=== PATIENT | female | born 1950 ===

== ENCOUNTER 2017-12-11 02:04 | Inpatient (IN) | payer MEDICARE, MEDICAID ==
[2017-12-11 02:20] VITALS: BMI 24.6
[2017-12-11 02:48] LABS: BASO # 0.1 K/uL (0.0-0.2); BASO % 0.5 % (0.0-2.0); EOS # 0.2 K/uL (0.0-0.7); EOS % 1.6 % (0.0-4.0); HEMOGLOBIN 10.8 g/dL (12.0-16.0); LYMPH # 2.8 K/uL (1.0-4.3); LYMPH % 21.6 % (20.0-40.0); MEAN CORPUSCULAR HEMOGLOBIN 25.3 pg (27.0-31.0); MEAN CORPUSCULAR HGB CONC 33.8 g/dL (33.0-37.0); MEAN PLATELET VOLUME 6.5 fl (7.2-11.7); MONO % 7.9 % (0.0-10.0); NEUT # 8.9 K/uL (1.8-7.0); NEUT % 68.4 % (50.0-75.0); RBC 4.28 Mil/uL (3.80-5.20); RED CELL DISTRIBUTION WIDTH 15.4 % (11.5-14.5); WHITE BLOOD COUNT 12.9 K/uL (4.8-10.8)
[2017-12-11 03:00] LABS: ALB/GLOB RATIO 1.4 (1.0-2.1); ALBUMIN 3.9 g/dL (3.5-5.0); ALT/SGPT 28 U/L (9-52); AST/SGOT 23 U/L (14-36); BLOOD UREA NITROGEN 14 mg/dl (7-17); CALCIUM 9.2 mg/dL (8.4-10.2); GFR AFRICAN-AMERICAN > 60; GFR NON-AFRICAN AMERICAN 55
[2017-12-11 03:00] LABS: SQUAMOUS EPITHIAL 1 /hpf (0-5); URINE BACTERIA RARE (<OCC); URINE BILIRUBIN NEGATIVE (NEGATIVE); URINE BLOOD SMALL (NEGATIVE); URINE CLARITY CLEAR (Clear); URINE COLOR STRAW (YELLOW); URINE GLUCOSE (UA) NEG (Normal); URINE LEUKOCYTE ESTERASE TRACE Leu/uL (Negative); URINE NITRATE NEGATIVE (NEGATIVE); URINE PROTEIN NEGATIVE (NEGATIVE); URINE UROBILINOGEN 0.2-1.0 mg/dL (0.2-1.0)
[2017-12-11] MEDS ORDERED: Sodium Chloride 0.9% 1,000 ML IV STA ×2 (03:02→06:04)
--- NOTE | 2017-12-11 03:15 | ED PDOC ---
HPI: Headache Time Seen by Provider: 12/11/17 02:21 Chief Complaint (Nursing): Headache Chief Complaint (Provider): Headache History Per: Patient History/Exam Limitations: no limitations Onset/Duration Of Symptoms: Days (x2) Current Symptoms Are (Timing): Still Present Additional Complaint(s): 67 year old female presents to ED with complaints of headache x2 days and has a past medical history of HTN, DM (type II), and depression. Notes that she started taking Lopressor x4 days ago, which is when the onset of generalized weakness and malaise. (-) vomiting, diarrhea, SOB, cough, or chest pain. PCP: Presley Koch Past Medical History Reviewed: Historical Data, Nursing Documentation, Vital Signs Vital Signs: Last Vital Signs Temp 97.2 F L 12/11/17 02:20 Pulse 85 12/11/17 02:20 Resp 16 12/11/17 02:20 BP 125/67 12/11/17 02:20 Pulse Ox 100 12/11/17 02:20 - Medical History PMH: Arthritis, Depression, Diabetes, Hypercholesterolemia - Surgical History Surgical History: No Surg Hx - Family History Family History: States: No Known Family Hx - Social History Current smoker - smoking cessation education provided: Yes Alcohol: None Drugs: Denies - Allergies Allergies/Adverse Reactions: Allergies Allergy/AdvReac Type Severity Reaction Status Date / Time acetaminophen [From Percocet] Allergy RASH Verified 12/11/17 02:19 oxycodone HCl [From Percocet] Allergy RASH Verified 12/11/17 02:19 Penicillins Allergy SWELLING Verified 12/11/17 02:19 Review of Systems ROS Statement: Except As Marked, All Systems Reviewed And Found Negative Constitutional: Positive for: Weakness (generalized), Malaise Cardiovascular: Negative for: Chest Pain Respiratory: Negative for: Shortness of Breath, Other ((-) cough) Gastrointestinal: Negative for: Vomiting, Diarrhea Neurological: Positive for: Headache Physical Exam - Reviewed Nursing Documentation Reviewed: Yes Vital Signs Reviewed: Yes - Physical Exam Appears: Positive for: Non-toxic, No Acute Distress Head Exam: Positive for: ATRAUMATIC Skin: Positive for: Normal Color, Warm, Dry Eye Exam: Positive for: Normal appearance ENT: Positive for: Normal ENT Inspection Neck: Positive for: Normal Cardiovascular/Chest: Positive for: Regular Rate, Rhythm Respiratory: Positive for: Normal Breath Sounds. Negative for: Respiratory Distress Gastrointestinal/Abdominal: Positive for: Soft. Negative for: Tenderness Back: Positive for: Normal Inspection Extremity: Positive for: Normal ROM. Negative for: Deformity Neurologic/Psych: Positive for: Alert, Oriented. Negative for: Motor/Sensory Deficits - Laboratory Results Result Diagrams: 12/11/17 02:45 12/11/17 02:45 - ECG O2 Sat by Pulse Oximetry: 100 (RA) Pulse Ox Interpretation: Normal Medical Decision Making Medical Decision Makin Initial impression: nonspecific headache in setting of medication change Initial plan: * Labs * UDip * Accucheck * UA 0303 * EKG * Osmolarity, serum * Osmolarity, urine * NS IV 0400 Patient will be admitted under INPATIENT TELE in Dr. Nolan's care for hyponatremia. Scribe Attestation: Documented by Tiffanie Diaz acting as a scribe for Romie Thompson MD. Scribe Attestation: All medical record entries made by the Scribe were at my direction and personally dictated by me. I have reviewed the chart and agree that the record accurately reflects my personal performance of the history, physical exam, medical decision making, and the department course for this patient. I have also personally directed, reviewed, and agree with the discharge instructions and disposition. Disposition - Clinical Impression Clinical Impression: Adverse reaction to antihypertensives - Disposition Disposition Time: 04:00 Condition: FAIR - Pt Status Changed To: Hospital Disposition Of: Inpatient (TELE) - Admit Certification Admit to Inpatient:: After my assessment, the patient will require hospitalization for at least two midnights. This is because of the severity of symptoms shown, intensity of services needed, and/or the medical risk in this patient being treated as an outpatient. - POA Present On Arrival: None
--- NOTE | 2017-12-11 09:44 | RAD ---
HISTORY: admit COMPARISON: CT chest dated 04/05/2017 and chest radiograph dated 06/04/2016. FINDINGS: LUNGS: Stable chronic prominence of the bilateral interstitial markings. Right apical and basilar subpleural honeycombing redemonstrated PLEURA: No significant pleural effusion identified, no pneumothorax apparent. CARDIOVASCULAR: Atherosclerotic aortic calcifications. Cardiomediastinal silhouette within normal limits. OSSEOUS STRUCTURES: Unchanged. VISUALIZED UPPER ABDOMEN: Normal. OTHER FINDINGS: None. IMPRESSION: Stable chronic prominence of the bilateral interstitial markings. No focal consolidation or pleural effusion.
[2017-12-11] MEDS ORDERED: SIMETHICONE 125 MG PO PRN (10:40)
[2017-12-11] MEDS ORDERED: Albuterol HFA 90 mcg/actuation (8 g) INH PRN (10:40)
[2017-12-11] MEDS ORDERED: Patient's Own Med (Azilsartan Medoxomil [Edarbi] 40 mg) PO SCH (10:45)
[2017-12-11] MEDS: Tmp-Smz 400 mg-80 mg SS Tab PO SCH ×2 (12:41→17:57)
[2017-12-11] MEDS: Metoprolol Succinate 25 mg XL Tab PO SCH (12:42)
--- NOTE | 2017-12-11 13:01 | CARD ---
APPROVED REPORT EKG Measurement Heart [id number] <Conclusion> Normal sinus rhythm Normal ECG
[2017-12-11 15:02] LABS: BLOOD UREA NITROGEN 13 mg/dl (7-17); CALCIUM 9.4 mg/dL (8.4-10.2); GFR AFRICAN-AMERICAN > 60; GFR NON-AFRICAN AMERICAN 55
[2017-12-11] MEDS ORDERED: Patient's Own Med (Linagliptin/Metformin Hcl [Jentadueto 2.5 Mg-1000 Mg Tab] 1 TAB) PO SCH (17:00)
[2017-12-11] MEDS: Calcium-Vit D 500 mg-200 Units Tab UD PO SCH (17:55)
[2017-12-12 06:43] LABS: BLOOD UREA NITROGEN 15 mg/dl (7-17); CALCIUM 9.8 mg/dL (8.4-10.2); GFR AFRICAN-AMERICAN > 60; GFR NON-AFRICAN AMERICAN 55
[2017-12-12] MEDS: Tmp-Smz 400 mg-80 mg SS Tab PO SCH ×2 (08:56→16:51)
[2017-12-12] MEDS: Calcium-Vit D 500 mg-200 Units Tab UD PO SCH ×2 (08:58→16:54)
[2017-12-12] MEDS: Pantoprazole 20 mg EC Tab PO SCH (08:59)
[2017-12-12] MEDS: Multivitamin With Minerals Tab PO SCH (08:59)
[2017-12-12] MEDS ORDERED: OLODATEROL HCL PO SCH (09:00)
[2017-12-12] MEDS: Metoprolol Succinate 25 mg XL Tab PO SCH (09:00)
[2017-12-12] MEDS ORDERED: TIOTROPIUM BR PO SCH (09:00)
[2017-12-12] MEDS ORDERED: ALENDRONATE 70 MG TAB PO SCH (10:45)
--- NOTE | 2017-12-12 22:23 | CP.PCM.HP ---
History of Present Illness - History of Present Illness History of Present Illness: This is a 67 y/o female admited for generalized fatigue and weakness and noted to have moderately low sodium of 124. She claims that sx started few days ago when she was started on Metoprolol. Past Patient History - Past Social History Smoking Status: Light Smoker < 10 Cigarettes Daily - CARDIAC Hx Cardiac Disorders: Yes (not known) - ENDOCRINE/METABOLIC Hx Diabetes Mellitus Type 2: Yes - MUSCULOSKELETAL/RHEUMATOLOGICAL Hx Falls: No - PSYCHIATRIC Hx Substance Use: No - SURGICAL HISTORY Hx Surgeries: Yes Hx Hysterectomy: Yes - ANESTHESIA Hx Anesthesia: Yes Meds Allergies/Adverse Reactions: Allergies Allergy/AdvReac Type Severity Reaction Status Date / Time acetaminophen [From Percocet] Allergy RASH Verified 12/11/17 02:19 oxycodone HCl [From Percocet] Allergy RASH Verified 12/11/17 02:19 Penicillins Allergy SWELLING Verified 12/11/17 02:19 Results - Vital Signs Recent Vital Signs: Last Vital Signs Temp 97.5 F L 12/12/17 20:04 Pulse 85 12/12/17 20:04 Resp 16 12/12/17 20:04 BP 99/63 L 12/12/17 20:04 Pulse Ox 96 12/12/17 20:04 - Labs Result Diagrams: 12/11/17 02:45 12/12/17 05:25 Labs: Laboratory Results - last 24 hr 12/11/17 12/12/17 12/12/17 21:00 05:25 05:32 Sodium 139 Potassium 4.3 Chloride 106 Carbon Dioxide 23 Anion Gap 14 BUN 15 Creatinine 1.0 Est GFR ( Amer) > 60 Est GFR (Non-Af Amer) 55 POC Glucose (mg/dL) 141 H 93 Random Glucose 85 Calcium 9.8 12/12/17 12/12/17 12/12/17 11:05 15:54 16:46 Sodium Potassium Chloride Carbon Dioxide Anion Gap BUN Creatinine Est GFR ( Amer) Est GFR (Non-Af Amer) POC Glucose (mg/dL) 136 H 67 103 Random Glucose Calcium
--- NOTE | 2017-12-12 22:25 | CP.PCM.PN ---
Subjective - Date & Time of Evaluation Date of Evaluation: 12/12/17 Time of Evaluation: 17:24 - Subjective Subjective: Patient continues to do well. Noted improvement of sx. Sodium is now 139 Has good sleep and appetite. Objective - Vital Signs/Intake and Output Vital Signs (last 24 hours): Temp Pulse Resp BP Pulse Ox 97.5 F L 85 16 99/63 L 96 12/12/17 20:04 12/12/17 20:04 12/12/17 20:04 12/12/17 20:04 12/12/17 20:04 - Medications Medications: Current Medications Alendronate Sodium (Fosamax) 70 mg PO QWK [facility] Aspirin (Ecotrin) 81 mg PO DAILY [facility] Last Admin: 12/12/17 08:57 Dose: 81 mg Atorvastatin Calcium (Lipitor) 20 mg PO DAILY [facility] Last Admin: 12/12/17 08:58 Dose: 20 mg Benzonatate (Tessalon Perles) 100 mg PO DAILY [facility] Last Admin: 12/12/17 08:59 Dose: 100 mg Calcium/Vitamin D (Oyster Shell Calcium/Vitamin D 500 Mg-200 Iu) 1 tab PO BID [facility] Last Admin: 12/12/17 16:54 Dose: 1 tab Cyproheptadine HCl (Periactin) 4 mg PO TID [facility] Last Admin: 12/12/17 13:55 Dose: 4 mg Ferrous Sulfate (Feosol) 325 mg PO BID [facility] Last Admin: 12/12/17 16:52 Dose: 325 mg Gabapentin (Neurontin) 100 mg PO TID [facility] Last Admin: 12/12/17 16:53 Dose: 100 mg Haloperidol (Haldol) 0.5 mg PO BID [facility] Last Admin: 12/12/17 16:52 Dose: 0.5 mg Ibuprofen (Motrin Tab) 600 mg PO Q8 PRN PRN Reason: Pain, moderate (4-7) Last Admin: 12/11/17 12:41 Dose: 600 mg Lorazepam (Ativan) 2 mg PO BID [facility] Last Admin: 12/12/17 16:51 Dose: 2 mg Meclizine HCl (Antivert) 25 mg PO BID [facility] Last Admin: 12/12/17 16:48 Dose: 25 mg Metoprolol Succinate (Toprol Xl) 25 mg PO DAILY [facility] Last Admin: 12/12/17 09:00 Dose: 25 mg Multivitamins/Minerals (Therapeutic-M Tab) 1 tab PO DAILY [facility] Last Admin: 12/12/17 08:59 Dose: 1 tab Olanzapine (Zyprexa) 20 mg PO DAILY [facility] Last Admin: 12/12/17 09:00 Dose: 20 mg Pantoprazole Sodium (Protonix Ec Tab) 20 mg PO DAILY [facility] Last Admin: 12/12/17 08:59 Dose: 20 mg Trimethoprim/Sulfamethoxazole (Bactrim Ss Tab) 1 tab PO BID [facility] Last Admin: 12/12/17 16:51 Dose: 1 tab Zolpidem Tartrate (Ambien) 5 mg PO HS PRN PRN Reason: Sleep Last Admin: 12/12/17 21:31 Dose: 5 mg - Labs Labs: 12/11/17 02:45 12/12/17 05:25
[2017-12-13 08:10] VITALS: BP 108/71; RESP 20; TEMP 97.4; O2SAT 98
[2017-12-13] MEDS: Tmp-Smz 400 mg-80 mg SS Tab PO SCH (09:04)
[2017-12-13] MEDS: Multivitamin With Minerals Tab PO SCH (09:05)
[2017-12-13] MEDS: Calcium-Vit D 500 mg-200 Units Tab UD PO SCH (09:05)
[2017-12-13] MEDS: Metoprolol Succinate 25 mg XL Tab PO SCH (09:07)
[2017-12-13 09:10] VITALS: PULSE 85
[2017-12-13] MEDS: Pantoprazole 20 mg EC Tab PO SCH (11:19)
== END 2017-12-13 12:28 | disposition home or self-care (01) | DRG 641 ==
LOC: H.ER 02:04 → H.ERHOLD 03:43 → H.TEL 06:29
PROVIDERS: ADMIT Family Medicine; ATTEND Family Medicine
DX: E87.1 Hypo-osmolality and hyponatremia (principal); E11.9 Type 2 diabetes mellitus without complications; E78.00 Pure hypercholesterolemia, unspecified; F17.200 Nicotine dependence, unspecified, uncomplicated; I10 Essential (primary) hypertension; Z90.710 Acquired absence of both cervix and uterus; F32.9 Major depressive disorder, single episode, unspecified; M19.90 Unspecified osteoarthritis, unspecified site

== ENCOUNTER 2017-12-22 07:46 | Emergency (ER) | payer MEDICARE, MEDICAID ==
[2017-12-22 07:47] VITALS: BMI 24.6
[2017-12-22 08:01] VITALS: BP 159/81; PULSE 113; RESP 20; TEMP 98.9; O2SAT 99
[2017-12-22 09:18] LABS: BASO % 0.2 % (0.0-2.0); EOS # 0.1 K/uL (0.0-0.7); EOS % 1.1 % (0.0-4.0); HEMOGLOBIN 11.3 g/dL (12.0-16.0); LYMPH # 2.2 K/uL (1.0-4.3); MEAN CELL VOLUME 76.2 fl (81.0-99.0); MEAN CORPUSCULAR HEMOGLOBIN 25.2 pg (27.0-31.0); MONO # 0.7 K/uL (0.0-0.8); MONO % 6.4 % (0.0-10.0); NEUT # 8.1 K/uL (1.8-7.0); NEUT % 72.3 % (50.0-75.0); NRBC % 0.1 % (0.0-0.0); RBC 4.49 Mil/uL (3.80-5.20); RED CELL DISTRIBUTION WIDTH 15.9 % (11.5-14.5); WHITE BLOOD COUNT 11.1 K/uL (4.8-10.8)
[2017-12-22 09:26] LABS: BLOOD UREA NITROGEN 18 mg/dl (7-17); CALCIUM 10.2 mg/dL (8.4-10.2); GFR AFRICAN-AMERICAN > 60; GFR NON-AFRICAN AMERICAN 50
--- NOTE | 2017-12-22 09:43 | ED PDOC ---
HPI: General Adult Time Seen by Provider: 12/22/17 08:15 Chief Complaint (Nursing): Dizziness/Lightheaded Chief Complaint (Provider): Dizziness History Per: Patient History/Exam Limitations: no limitations Current Symptoms Are (Timing): Still Present Additional Complaint(s): Grazyna is a 67 y/o female who presents to the ED complaining of ongoing dizziness and lightheadedness. Patient states that she couldn't see Dr. Quinteros when she went to his office yesterday and says that despite him removing some diuretics she continues to be dizzy. She has no other complaints. PMD: Dr. Quinteros Past Medical History Reviewed: Historical Data, Nursing Documentation, Vital Signs Vital Signs: Last Vital Signs Temp 98.9 F 12/22/17 08:01 Pulse 113 H 12/22/17 08:01 Resp 20 12/22/17 08:01 BP 159/81 H 12/22/17 08:01 Pulse Ox 99 12/22/17 09:48 - Medical History PMH: Arthritis, Depression, Diabetes, Hypercholesterolemia - Family History Family History: States: Unknown Family Hx - Home Medications Home Medications: Ambulatory Orders Medication Instructions Recorded Albuterol HFA [Ventolin HFA 90 2 puff INH PRN PRN 12/11/17 mcg/actuation (8 g)] Alendronate [Fosamax] 70 mg PO QWK 12/11/17 Amitriptyline HCl 50 mg PO HS 12/11/17 Aspirin [Adult Low Dose Aspirin EC] 1 tab PO DAILY 12/11/17 Azilsartan Medoxomil [Edarbi] 40 mg PO DAILY 12/11/17 Benzonatate [Tessalon Perles] 100 mg PO DAILY 12/11/17 Calcium Carbonate/Vitamin D3 1 tab PO BID 12/11/17 [Oyster Shell Calcium-Vit D Tab] Cyproheptadine [Periactin] 4 mg PO TID 12/11/17 Ferrous Sulfate [Feosol] 325 mg PO BID 12/11/17 Gabapentin [Neurontin] 100 mg PO TID 12/11/17 Haloperidol [Haldol] 0.5 mg PO BID 12/11/17 Linagliptin/Metformin HCl 1 tab PO BID 12/11/17 [Jentadueto 2.5 mg-1000 mg Tab] Lorazepam [Ativan] 2 mg PO BID 12/11/17 Meclizine [Meclizine*] 25 mg PO BID 12/11/17 Mv,Min10/Folic Acid/D3/Ala/Lut 1 tab PO DAILY 12/11/17 [Strovite One Caplet] Olanzapine [Zyprexa] 20 mg PO DAILY 12/11/17 Omeprazole 20 mg PO DAILY 12/11/17 Rosuvastatin Calcium [Crestor] 10 mg PO DAILY 12/11/17 Simethicone [Gas-X] 125 mg PO PRN PRN 12/11/17 Sulfamethoxazole/Trimethoprim 1 tab PO BID 12/11/17 [Bactrim 400-80 mg Tablet] Tiotropium Br/Olodaterol HCl 1 inh PO DAILY 12/11/17 [Stiolto Respimat Inhal Rudolph] Zolpidem [Ambien] 10 mg PO HS PRN 12/11/17 - Allergies Allergies/Adverse Reactions: Allergies Allergy/AdvReac Type Severity Reaction Status Date / Time acetaminophen [From Percocet] Allergy RASH Verified 12/11/17 02:19 oxycodone HCl [From Percocet] Allergy RASH Verified 12/11/17 02:19 Penicillins Allergy SWELLING Verified 12/11/17 02:19 Review of Systems ROS Statement: Except As Marked, All Systems Reviewed And Found Negative Cardiovascular: Negative for: Chest Pain Respiratory: Negative for: Shortness of Breath Neurological: Positive for: Dizziness, Other (lightheadedness) Physical Exam - Reviewed Nursing Documentation Reviewed: Yes Vital Signs Reviewed: Yes - Physical Exam Appears: Positive for: Well, Non-toxic, No Acute Distress Skin: Positive for: Normal Color, Warm, DRY Cardiovascular/Chest: Positive for: Regular Rate, Rhythm. Negative for: Murmur Respiratory: Positive for: Normal Breath Sounds. Negative for: Wheezing, Respiratory Distress Neurologic/Psych: Positive for: Alert, Oriented - Laboratory Results Result Diagrams: 12/22/17 08:48 12/22/17 08:48 - ECG O2 Sat by Pulse Oximetry: 99 (RA) Pulse Ox Interpretation: Normal Medical Decision Making Medical Decision Making: Time: 8:22 Initial Impression: Dizziness Initial Plan: --BMP --Urine Dip --CBC --Urine Culture --Urinalysis --Dr. Quinteros was consulted. He states that patient denied seeing one of his assistants yesterday. Ovidio will see patient today. Scribe Attestation: Documented by Antonino Carrasco, acting as a scribe for Janny Steen MD Provider Scribe Attestation: All medical record entries made by the Scribe were at my direction and personally dictated by me. I have reviewed the chart and agree that the record accurately reflects my personal performance of the history, physical exam, medical decision making, and the department course for this patient. I have also personally directed, reviewed, and agree with the discharge instructions and disposition. case d.w Dr. quinteros. labs reviewed. values are chronic and improved compared to previous. He will see her today in his office. Patient made aware and discharged. Disposition - Clinical Impression Clinical Impression: Dizziness - Patient ED Disposition Is Patient to be Admitted: No Discussed With : Presley Quinteros Doctor Will See Patient In The: Office Counseled Patient/Family Regarding: Studies Performed, Diagnosis, Need For Followup - Disposition Referrals: Presley Quinteros MD [Family Provider] - 12/22/17 1:00 pm Disposition: Routine/Home Disposition Time: 10:07 Condition: STABLE Instructions: Dizziness (ED) Forms: [employer] (Comoran) Print Language: ICELANDIC
[2017-12-22 10:09] LABS: SQUAMOUS EPITHIAL 4 /hpf (0-5); URINE BACTERIA RARE (<OCC); URINE BILIRUBIN NEGATIVE (NEGATIVE); URINE BLOOD SMALL (NEGATIVE); URINE CLARITY CLOUDY (Clear); URINE COLOR STRAW (YELLOW); URINE GLUCOSE (UA) NEG (Normal); URINE LEUKOCYTE ESTERASE NEG Leu/uL (Negative); URINE NITRATE NEGATIVE (NEGATIVE); URINE PROTEIN NEGATIVE (NEGATIVE); URINE UROBILINOGEN 0.2-1.0 mg/dL (0.2-1.0)
== END 2017-12-22 10:59 | disposition home or self-care (01) ==
LOC: H.ER 07:46
DX: R42 Dizziness and giddiness (principal); E11.9 Type 2 diabetes mellitus without complications; E78.00 Pure hypercholesterolemia, unspecified; F32.9 Major depressive disorder, single episode, unspecified; Z79.82 Long term (current) use of aspirin; Z88.0 Allergy status to penicillin; Z88.5 Allergy status to narcotic agent

== ENCOUNTER 2018-12-22 08:55 | Inpatient (IN) | payer MEDICARE, MEDICAID ==
[2018-12-22 08:57] VITALS: BMI 29.2
[2018-12-22] MEDS ORDERED: Sodium Chloride 0.9% 1,000 ML IV STA (09:18)
--- NOTE | 2018-12-22 09:33 | ED PDOC ---
HPI: General Adult Chief Complaint (Nursing): Dizziness/Lightheaded Chief Complaint (Provider): dizziness and nausea History Per: Patient History/Exam Limitations: no limitations Onset/Duration Of Symptoms: Hrs (this morning) Current Symptoms Are (Timing): Still Present Additional Complaint(s): Grazyna Carmona is a 68 year old female, with a past medical history of hypercholesterolemia and diabetes, who presents to the emergency department complaining of dizziness and nausea since this morning. Patient states last night when she went to bed, she felt unwell but cannot state how. Patient re ports her PMD changed her medication doses yesterday but not sure which ones were changed, otherwise she has been compliant with her medications. She woke up this morning feeling dizzy and nauseous but has not vomited. She denies any fever, chills, chest pain, shortness of breath, headache, weakness, numbness or tingling. No further medical complaints. PMD: Presley Nolan Past Medical History Reviewed: Historical Data, Nursing Documentation, Vital Signs Vital Signs: Last Vital Signs Temp 98.2 F 12/22/18 08:58 Pulse 108 H 12/22/18 08:58 Resp 18 12/22/18 08:58 BP 186/91 H 12/22/18 08:58 Pulse Ox 98 12/22/18 09:02 - Medical History PMH: Arthritis, Depression, Diabetes, Hypercholesterolemia - Surgical History Surgical History: No Surg Hx - Family History Family History: States: Unknown Family Hx - Home Medications Home Medications: Ambulatory Orders Medication Instructions Recorded RX: Amitriptyline HCl 50 mg PO HS 12/11/17 RX: Aspirin [Adult Low Dose 1 tab PO DAILY 12/11/17 Aspirin EC] RX: Azilsartan Medoxomil [Edarbi] 40 mg PO DAILY 12/11/17 RX: Benzonatate [Tessalon Perles] 100 mg PO Q12 PRN 12/11/17 RX: Calcium Carbonate/Vitamin D3 1 tab PO BID 12/11/17 [Oyster Shell Calcium-Vit D Tab] RX: Ferrous Sulfate [Feosol] 325 mg PO BID 12/11/17 RX: Lorazepam [Ativan] 2 mg PO Q12 12/11/17 RX: Meclizine [Meclizine*] 25 mg PO Q12 PRN 12/11/17 RX: Mv,Min10/Folic Acid/D3/Ala/Lut 1 tab PO DAILY 12/11/17 [Strovite One Caplet] RX: Olanzapine [Zyprexa] 20 mg PO HS 12/11/17 RX: Rosuvastatin Calcium [Crestor] 10 mg PO DAILY 12/11/17 RX: Simethicone [Gas-X] 125 mg PO DAILY PRN 12/11/17 RX: Tiotropium Br/Olodaterol HCl 1 inh PO DAILY 12/11/17 [Stiolto Respimat Inhal Dorena] RX: Zolpidem [Ambien] 10 mg PO HS 12/11/17 Albuterol/Ipratropium [Duoneb 3 3 ml IH Q8 12/22/18 mg/0.5 mg (3 ml) UD] Azithromycin [Zithromax Tri-Cliff] 500 mg PO DAILY 12/22/18 Brompheniramine/Pseudoephed/Dm 10 ml PO Q8 PRN 12/22/18 [Msiavbpthc-Xxjhlugnzhe-Am Syr] Budesonide/Formoterol Fumarate 1 puff IH Q12 12/22/18 [Symbicort 160-4.5 Mcg Inhaler] Ergocalciferol (Vitamin D2) 50,000 unit PO QWK 12/22/18 [Vitamin D2] Metoprolol Succinate XL [Toprol XL] 25 mg PO DAILY 12/22/18 Pantoprazole Sodium [Protonix] 20 mg PO DAILY 12/22/18 RX: Gabapentin [Neurontin] 300 mg PO QAM 12/22/18 RX: Gabapentin [Neurontin] 600 mg PO HS 12/22/18 RX: Sodium Chloride [Sodium 1 gm PO Q12 12/22/18 Chloride Tab] SITagliptin [Januvia] 100 mg PO DAILY 12/22/18 Vortioxetine Hydrobromide 10 mg PO DAILY 12/22/18 [Trintellix] - Allergies Allergies/Adverse Reactions: Allergies Allergy/AdvReac Type Severity Reaction Status Date / Time acetaminophen [From Percocet] Allergy RASH Verified 12/22/18 09:02 oxycodone HCl [From Percocet] Allergy RASH Verified 12/22/18 09:02 Penicillins Allergy SWELLING Verified 12/22/18 09:02 Review of Systems ROS Statement: Except As Marked, All Systems Reviewed And Found Negative Constitutional: Negative for: Fever, Chills Cardiovascular: Negative for: Chest Pain Respiratory: Negative for: Shortness of Breath Gastrointestinal: Positive for: Nausea. Negative for: Vomiting Neurological: Positive for: Dizziness. Negative for: Weakness, Numbness (tingling), Headache Physical Exam - Reviewed Nursing Documentation Reviewed: Yes Vital Signs Reviewed: Yes - Physical Exam Appears: Positive for: Well, No Acute Distress Head Exam: Positive for: ATRAUMATIC, NORMAL INSPECTION, NORMOCEPHALIC Skin: Positive for: Normal Color, Warm, Dry Eye Exam: Positive for: Normal appearance, EOMI, PERRL Neck: Positive for: Normal, Painless ROM Cardiovascular/Chest: Positive for: Tachycardia (regular rhythm). Negative for: Murmur Respiratory: Positive for: Normal Breath Sounds. Negative for: Respiratory Distress Gastrointestinal/Abdominal: Positive for: Normal Exam, Soft. Negative for: Tenderness, Guarding, Rebound Back: Positive for: Normal Inspection. Negative for: L CVA Tenderness, R CVA Tenderness, Vertebral Tenderness Extremity: Positive for: Normal ROM (upper and lower extremities). Negative for: Deformity, Swelling Neurologic/Psych: Positive for: Alert, Oriented. Negative for: Motor/Sensory Deficits, Aphasia, Facial Droop - Laboratory Results Result Diagrams: 12/22/18 09:23 12/22/18 12:15 - ECG O2 Sat by Pulse Oximetry: 98 (RA) Pulse Ox Interpretation: Normal Medical Decision Making Medical Decision Making: Initial Impression: work up for dizziness and nausea. R/o cardiac etiology vs infectious process. Flu swab, labs, IV fluids and reassess patient. Initial Plan: --EKG --CMP --CBC w/ differential --Chest two views (PA.LAT) [RAD] --NaCl 1,000 ml IV 1,000 mls/hr --Zofran Inj 4 mg IVP --Influenza A B --Urinalysis --Reevaluation 10:12 Patient with hyponatremia of 114, not due to hyperglycemia. Will start hypertonic saline for slow administration. No neurovascular deficits at this point besides subjective dizziness. Spoke with Dr. Hussein who agrees with admission. Repeat labs in x2 hrs, patient on monitor. 11:09 CXR FINDINGS: LUNGS: Stable chronic prominence of the bilateral interstitial markings. Right apical and basilar subpleural honeycombing redemonstrated. Tiny peripheral left midlung calcified granuloma unchanged. PLEURA: No significant pleural effusion identified. No pneumothorax apparent. CARDIOVASCULAR: Aortic atherosclerotic calcifications. Cardiomediastinal silhouette within normal limits. OSSEOUS STRUCTURES: Unchanged. VISUALIZED UPPER ABDOMEN: Normal. OTHER FINDINGS: None. IMPRESSION: Stable chronic prominence of the bilateral interstitial markings. No focal consolidation or pleural effusion. 1:10 Sodium improved to 120 following one bolus. Pt stable and to be taken to the floor now. -- Scribe Attestation: Documented by Seamus Arteaga, acting as a scribe for Olivia Zaldivar MD Provider Scribe Attestation: All medical record entries made by the Scribe were at my direction and personally dictated by me. I have reviewed the chart and agree that the record accurately reflects my personal performance of the history, physical exam, medical decision making, and the department course for this patient. I have also personally directed, reviewed, and agree with the discharge instructions and disposition. Disposition - Clinical Impression Clinical Impression: Hyponatremia - Disposition Disposition Time: 13:10 Condition: FAIR
[2018-12-22 09:45] LABS: BASO # 0.1 K/uL (0.0-0.2); BASO % 0.5 % (0.0-2.0); EOS # 0.1 K/uL (0.0-0.7); EOS % 1.2 % (0.0-4.0); HEMOGLOBIN 10.9 g/dL (12.0-16.0); LYMPH # 1.5 K/uL (1.0-4.3); LYMPH % 15.8 % (20.0-40.0); MEAN CORPUSCULAR HEMOGLOBIN 26.3 pg (27.0-31.0); MEAN CORPUSCULAR HGB CONC 34.1 g/dL (33.0-37.0); MEAN PLATELET VOLUME 6.4 fl (7.2-11.7); MONO # 0.7 K/uL (0.0-0.8); MONO % 7.5 % (0.0-10.0); NEUT # 7.4 K/uL (1.8-7.0); NRBC % 0.1 % (0.0-0.0); RBC 4.14 Mil/uL (3.80-5.20); RED CELL DISTRIBUTION WIDTH 15.5 % (11.5-14.5); WHITE BLOOD COUNT 9.8 K/uL (4.8-10.8)
[2018-12-22 10:06] LABS: ALBUMIN 4.3 g/dL (3.5-5.0); CALCIUM 9.2 mg/dL (8.4-10.2)
[2018-12-22 10:07] LABS: ALB/GLOB RATIO 1.5 (1.0-2.1)
[2018-12-22] MEDS ORDERED: Sodium Chloride 3% 100 ML IV STA (10:16)
[2018-12-22 10:20] LABS: SQUAMOUS EPITHIAL < 1 /hpf (0-5); URINE BACTERIA RARE (<OCC); URINE BILIRUBIN NEGATIVE (NEGATIVE); URINE BLOOD SMALL (NEGATIVE); URINE CLARITY CLEAR (Clear); URINE COLOR COLORLESS (YELLOW); URINE GLUCOSE (UA) NEG (NEGATIVE); URINE LEUKOCYTE ESTERASE NEG Leu/uL (Negative); URINE PROTEIN NEGATIVE (NEGATIVE); URINE UROBILINOGEN 0.2-1.0 mg/dL (0.2-1.0)
[2018-12-22] MEDS ORDERED: Sodium Chloride 3% 100 ML IV ONE (10:45)
--- NOTE | 2018-12-22 11:13 | RAD ---
Date of service: 12/22/2018 HISTORY: cough COMPARISON: Chest radiograph dated 12/11/2017. TECHNIQUE: Chest PA and lateral FINDINGS: LUNGS: Stable chronic prominence of the bilateral interstitial markings. Right apical and basilar subpleural honeycombing redemonstrated. Tiny peripheral left midlung calcified granuloma unchanged. PLEURA: No significant pleural effusion identified. No pneumothorax apparent. CARDIOVASCULAR: Aortic atherosclerotic calcifications. Cardiomediastinal silhouette within normal limits. OSSEOUS STRUCTURES: Unchanged. VISUALIZED UPPER ABDOMEN: Normal. OTHER FINDINGS: None. IMPRESSION: Stable chronic prominence of the bilateral interstitial markings. No focal consolidation or pleural effusion.
[2018-12-22 12:39] LABS: CALCIUM 8.9 mg/dL (8.4-10.2)
--- NOTE | 2018-12-22 13:45 | CARD ---
APPROVED REPORT Date of service: 12/22/2018 EKG Measurement Heart [id number] <Conclusion> Sinus tachycardia Possible Left atrial enlargement Borderline ECG
[2018-12-22] MEDS ORDERED: Simethicone 80 mg Chewtab PO PRN (16:22)
[2018-12-22] MEDS ORDERED: Ergocalciferol 50,000 Intl Units Cap PO SCH (16:30)
[2018-12-22] MEDS: Calcium-Vit D 500 mg-200 Units Tab UD PO SCH (17:58)
[2018-12-22 19:19] LABS: URIC ACID 3.6 mg/Dl (2.2-7.5)
--- NOTE | 2018-12-22 19:26 | CP.PCM.CON ---
History of Present Illness - History of Present Illness History of Present Illness: pt is seen and examined, full consult is dictated #[id number] Past Patient History - Past Medical History & Family History Past Medical History?: Yes - Past Social History Smoking Status: Light Smoker < 10 Cigarettes Daily - CARDIAC Hx Cardiac Disorders: Yes Hx Hypercholesterolemia: Yes Hx Hypertension: Yes - PULMONARY Hx Respiratory Disorders: No - NEUROLOGICAL Hx Neurological Disorder: Yes Hx Dizziness: Yes Hx Vertigo: Yes - HEENT Hx HEENT Problems: Yes Hx Cataracts: Yes - RENAL Hx Chronic Kidney Disease: No - ENDOCRINE/METABOLIC Hx Endocrine Disorders: Yes Hx Diabetes Mellitus Type 2: Yes - HEMATOLOGICAL/ONCOLOGICAL Hx Blood Disorders: No - INTEGUMENTARY Hx Dermatological Problems: No - MUSCULOSKELETAL/RHEUMATOLOGICAL Hx Musculoskeletal Disorders: Yes Hx Arthritis: Yes Hx Falls: No - GASTROINTESTINAL Hx Gastrointestinal Disorders: No - GENITOURINARY/GYNECOLOGICAL Hx Genitourinary Disorders: No - PSYCHIATRIC Hx Psychophysiologic Disorder: Yes Hx Depression: Yes Hx Schizophrenia: Yes Hx Substance Use: No - SURGICAL HISTORY Hx Surgeries: Yes Hx Hysterectomy: Yes - ANESTHESIA Hx Anesthesia: Yes Hx Anesthesia Reactions: No Meds Allergies/Adverse Reactions: Allergies Allergy/AdvReac Type Severity Reaction Status Date / Time acetaminophen [From Percocet] Allergy RASH Verified 12/22/18 09:02 oxycodone HCl [From Percocet] Allergy RASH Verified 12/22/18 09:02 Penicillins Allergy SWELLING Verified 12/22/18 09:02 - Medications Medications: Current Medications Aspirin (Ecotrin) 81 mg PO DAILY [facility] Atorvastatin Calcium (Lipitor) 20 mg PO DAILY [facility] Benzonatate (Tessalon Perles) 100 mg PO Q12 PRN PRN Reason: Cough Calcium/Vitamin D (Oyster Shell Calcium/Vitamin D 500 Mg-200 Iu) 1 tab PO BID [facility] Last Admin: 12/22/18 17:58 Dose: 1 tab Ergocalciferol (Drisdol 50,000 Intl Units Cap) 1 cap PO QWK [facility] Last Admin: 12/22/18 17:58 Dose: 1 cap Ferrous Sulfate (Feosol) 325 mg PO BID [facility] Last Admin: 12/22/18 17:58 Dose: 325 mg Gabapentin (Neurontin) 300 mg PO QAM [facility] Gabapentin (Neurontin) 600 mg PO HS [facility] Guaifenesin/Dextromethorphan (Robitussin Dm) 10 ml PO Q8 PRN PRN Reason: Cough Home Med (Azilsartan Medoxomil [Edarbi]) 40 mg PO DAILY [facility] Meclizine HCl (Antivert) 25 mg PO Q12 PRN PRN Reason: Dizziness Metoprolol Succinate (Toprol Xl) 25 mg PO DAILY [facility] Multivitamins/Minerals (Therapeutic-M Tab) 1 tab PO DAILY [facility] Olanzapine (Zyprexa) 20 mg PO HS [facility] Pantoprazole Sodium (Protonix Ec Tab) 20 mg PO DAILY [facility] Fluticasone/Salmeterol (Advair Diskus 250/50) 1 puff IH Q12 [facility] Simethicone (Mylicon Chew Tab) 80 mg PO DAILY PRN PRN Reason: Flatulence Sitagliptin Phosphate (Januvia) 100 mg PO DAILY [facility] Zolpidem Tartrate (Ambien) 5 mg PO HS [facility] Results - Vital Signs Recent Vital Signs: Last Vital Signs Temp 98.0 F 12/22/18 16:00 Pulse 81 12/22/18 16:00 Resp 16 12/22/18 16:00 BP 161/77 H 12/22/18 16:00 Pulse Ox 97 12/22/18 16:00 - Labs Result Diagrams: 12/22/18 09:23 12/22/18 12:15 Labs: Laboratory Results - last 24 hr 12/22/18 12/22/18 12/22/18 09:10 09:23 09:23 WBC 9.8 RBC 4.14 Hgb 10.9 L Hct 31.9 L MCV 77.0 L MCH 26.3 L MCHC 34.1 RDW 15.5 H Plt Count 354 MPV 6.4 L Neut % (Auto) 75.0 Lymph % (Auto) 15.8 L [place] % (Auto) 7.5 Eos % (Auto) 1.2 Baso % (Auto) 0.5 Neut # (Auto) 7.4 H Lymph # (Auto) 1.5 [place] # (Auto) 0.7 Eos # (Auto) 0.1 Baso # (Auto) 0.1 Sodium 114 L* Potassium 4.2 Chloride 79 L Carbon Dioxide 25 Anion Gap 14 BUN 18 H Creatinine 1.1 Est GFR ( Amer) 60 Est GFR (Non-Af Amer) 50 POC Glucose (mg/dL) Random Glucose 78 Uric Acid Calcium 9.2 Total Bilirubin 0.8 AST 55 H D ALT 35 Alkaline Phosphatase 80 Total Protein 7.2 Albumin 4.3 Globulin 2.9 Albumin/Globulin Ratio 1.5 Urine Color Urine Clarity Urine pH Ur Specific [place] Urine Protein Urine Glucose (UA) Urine Ketones Urine Blood Urine Nitrate Urine Bilirubin Urine Urobilinogen Ur Leukocyte Esterase Urine RBC (Auto) Urine Microscopic WBC Ur Squamous Epith Cells Urine Bacteria Influenza Typ A,B (EIA) Negative for flu a/b 12/22/18 12/22/18 12/22/18 09:23 10:13 12:15 WBC RBC Hgb Hct MCV MCH MCHC RDW Plt Count MPV Neut % (Auto) Lymph % (Auto) [place] % (Auto) Eos % (Auto) Baso % (Auto) Neut # (Auto) Lymph # (Auto) [place] # (Auto) Eos # (Auto) Baso # (Auto) Sodium 120 L* Potassium 4.0 Chloride 86 L Carbon Dioxide 25 Anion Gap 13 BUN 17 Creatinine 1.1 Est GFR ( Amer) 60 Est GFR (Non-Af Amer) 50 POC Glucose (mg/dL) 91 Random Glucose 74 Uric Acid Calcium 8.9 Total Bilirubin AST ALT Alkaline Phosphatase Total Protein Albumin Globulin Albumin/Globulin Ratio Urine Color Colorless Urine Clarity Clear Urine pH 8.0 Ur Specific [place] < 1.005 Urine Protein Negative Urine Glucose (UA) Neg Urine Ketones Negative Urine Blood Small Urine Nitrate Negative Urine Bilirubin Negative Urine Urobilinogen 0.2-1.0 Ur Leukocyte Esterase Neg Urine RBC (Auto) 1 Urine Microscopic WBC < 1 Ur Squamous Epith Cells < 1 Urine Bacteria Rare Influenza Typ A,B (EIA) 12/22/18 12/22/18 16:36 19:00 WBC RBC Hgb Hct MCV MCH MCHC RDW Plt Count MPV Neut % (Auto) Lymph % (Auto) [place] % (Auto) Eos % (Auto) Baso % (Auto) Neut # (Auto) Lymph # (Auto) [place] # (Auto) Eos # (Auto) Baso # (Auto) Sodium Potassium Chloride Carbon Dioxide Anion Gap BUN Creatinine Est GFR ( Amer) Est GFR (Non-Af Amer) POC Glucose (mg/dL) 82 Random Glucose Uric Acid 3.6 Calcium Total Bilirubin AST ALT Alkaline Phosphatase Total Protein Albumin Globulin Albumin/Globulin Ratio Urine Color Urine Clarity Urine pH Ur Specific [place] Urine Protein Urine Glucose (UA) Urine Ketones Urine Blood Urine Nitrate Urine Bilirubin Urine Urobilinogen Ur Leukocyte Esterase Urine RBC (Auto) Urine Microscopic WBC Ur Squamous Epith Cells Urine Bacteria Influenza Typ A,B (EIA)
[2018-12-22] MEDS ORDERED: Sodium Chloride 0.9% 1,000 ML IV SCH (20:45)
[2018-12-22] MEDS: Fluticasone-Salmeterol 250-50mcg Diskus IH SCH (21:09)
[2018-12-22] MEDS: guaiFENesin DM 200 mg-20 mg/10 ml UD PO PRN (23:14)
[2018-12-23 05:49] LABS: HEMOGLOBIN 11.2 g/dL (12.0-16.0); MEAN CELL VOLUME 77.9 fl (81.0-99.0); MEAN CORPUSCULAR HEMOGLOBIN 26.6 pg (27.0-31.0); MEAN CORPUSCULAR HGB CONC 34.1 g/dL (33.0-37.0); RBC 4.2 Mil/uL (3.80-5.20); RED CELL DISTRIBUTION WIDTH 15.9 % (11.5-14.5); WHITE BLOOD COUNT 7.2 K/uL (4.8-10.8)
--- NOTE | 2018-12-23 06:22 | CON ---
DATE: 12/22/2018 RENAL CONSULTATION LOCATION: The patient is located in room 423, bed 1, telemetry monitoring bed. REQUESTED BY: Darryl Hussein M.D. REASON FOR RENAL CONSULTATION: Hyponatremia, for further evaluation. HISTORY OF PRESENT ILLNESS: Mrs. Grazyna Carmona is a 68-year-old elderly female with a past medical history significant for hypertension for one year, diabetes, hyperlipidemia who was admitted to the emergency room with chief complaints of feeling dizzy, nausea since morning today. As per the patient, last night, she went to bed, she felt unwell but cannot state how, and as per the patient, her PMD changed the medication recently, and she does not know exactly. The patient denies any vomiting. The patient does complain of dizziness and nausea this morning. Denies any fever, cough. Denies any chills. Denies any chest pain, palpitations. Denies any shortness of breath. Denies any headache. Denies any dysuria or frequency. Denies any swelling of the legs. PAST MEDICAL HISTORY: Significant for hypertension, diabetes, hyperlipidemia, arthritis, and depression. PAST SURGICAL HISTORY: Hysterectomy. ALLERGIES: ALLERGIC TO PENICILLIN, CODEINE, AND ACETAMINOPHEN. SOCIAL HISTORY: No smoking. No alcohol. No drugs. FAMILY HISTORY: Not significant. She is single, and she has 2 children. CURRENT MEDICATIONS: Include as follows: Amitriptyline 50 mg p.o. at bedtime, aspirin 1 tablet daily, Edarbi 40 mg p.o. daily, Tessalon Perles, [place] with vitamin D, ferrous sulfate, Ativan, meclizine, Strovite One, Zyprexa, Crestor, Gas-X, Ambien, DuoNeb inhaler, vitamin D2, metoprolol, gabapentin, pantoprazole, Januvia, Trintellix, and vortioxetine hydrobromide 10 mg p.o. daily. REVIEW OF SYSTEMS: Significant for dizziness and nausea since morning. All other review of systems are reviewed and negative. PHYSICAL EXAMINATION: VITAL SIGNS: As follows: Blood pressure 161/77, pulse 81, respirations 16, temperature 98, saturations 97%. Height 4 feet 9 inches and weight is 135 pounds. GENERAL: Mrs. Carmona is a 68-year-old, elderly female, moderately built, moderately nourished, not in acute distress. HEENT: Pupils are normal, reactive to light and accommodation. Conjunctivae are pink. Sclerae anicteric. Tongue is dry. Trachea is midline. LUNGS: Symmetric on both sides. Bilateral breath sounds present. Clear to auscultation. CARDIOVASCULAR SYSTEM: [place] at the fifth intercostal space, midclavicular line. S1, S2 audible. No murmur or gallop. ABDOMEN: Normal in appearance. Soft, tympanitic. No guarding. No rigidity. No hepatosplenomegaly. CENTRAL NERVOUS SYSTEM: The patient is alert, awake, oriented x3. Nonfocal neuro examination. Cranial nerves II through XII grossly intact. Sensory and motor system is within normal limits. EXTREMITIES: No cyanosis, no clubbing, no edema. SKIN: Turgor is slightly poor. LABORATORY DATA: Include as follows: As of 12/22/2018, WBC 9.8, hemoglobin 10.9, hematocrit is 31.9, MCV 77, platelets 354. Sodium 114, potassium 4.2, chloride 79, CO2 of 25, BUN 18, creatinine 1.1, glucose 78, calcium 9.2, total bili 0.3, AST 55, ALT 35, alkaline phosphatase 18, total protein 7.2, albumin 4.3. Urinalysis, colorless, clear, pH 8, specific gravity less than 1.005, protein negative, glucose negative, ketones negative, blood small, nitrites negative, bilirubin negative, urobilinogen 0.2 to 1, leukocyte esterase negative, rbc 1, wbc less than 1, bacteria rare, and influenza A and B antibody is negative. Urine electrolytes, urine osmolality is 90, urine sodium is 16, and urine potassium is 6.7. Other laboratory data, chest x-ray as of 12/22/2018, stable chronic prominence of the bilateral interstitial markings and no focal consolidation or pleural effusion. Other laboratory data, as of 12/22/2017, sodium 129, potassium 5.1, chloride 95, CO2 of 24, BUN 18, creatinine 1.1, glucose 78, calcium 10.2. As of 12/22/2018, sodium 120, potassium 4, chloride 86, CO2 of 25, BUN 17, creatinine 1.1, glucose 74, calcium 8.9. As of 12/22/2017, urine specific gravity 1.005. ASSESSMENT: In summary, Mrs. Carmona is a 68-year-old elderly female with history of hypertension, diabetes, hyperlipidemia, and depression, was admitted with feeling dizzy, nausea this morning and low serum sodium and low urine specific gravity, low urine osmolality and low serum sodium on admission of 114 at 09:23 and repeat sodium at 12:15 is 120 and the thyroid-stimulating hormone is 0.74 and serum uric acid is 3.6. Hyponatremia, etiology is not clear, picture consistent with psychogenic polydipsia in view of low serum sodium and low serum osmolality and also low urine specific gravity, low urine osmolality. We will check serum cortisol level in a.m. and continue to monitor BMP. We will start IV fluids 70 mL per hour. We will wait for the repeat BMP this evening. We will follow with you. Picture is not consistent with prerenal azotemia or with SIADH at this time. Thank you for allowing me to participate in your patient's care. Juan Manuel Walter MD
[2018-12-23 06:36] LABS: ALB/GLOB RATIO 1.3 (1.0-2.1); ALBUMIN 3.7 g/dL (3.5-5.0)
[2018-12-23] MEDS: Patient's Own Med (Azilsartan Medoxomil [Edarbi] 40 mg) PO SCH (08:18)
[2018-12-23] MEDS: Calcium-Vit D 500 mg-200 Units Tab UD PO SCH ×2 (08:20→16:41)
[2018-12-23] MEDS: Pantoprazole 20 mg EC Tab PO SCH (08:22)
[2018-12-23] MEDS: Metoprolol Succinate 25 mg XL Tab PO SCH (08:22)
[2018-12-23] MEDS: Multivitamin With Minerals Tab PO SCH (08:22)
[2018-12-23] MEDS: guaiFENesin DM 200 mg-20 mg/10 ml UD PO PRN ×2 (08:25→20:20)
[2018-12-23] MEDS ORDERED: TIOTROPIUM BR PO SCH (09:00)
[2018-12-23] MEDS ORDERED: OLODATEROL HCL PO SCH (09:00)
[2018-12-23] MEDS: Fluticasone-Salmeterol 250-50mcg Diskus IH SCH ×2 (10:17→20:19)
--- NOTE | 2018-12-23 11:39 | CP.PCM.PN ---
Subjective - Date & Time of Evaluation Date of Evaluation: 12/23/18 Time of Evaluation: 11:38 - Subjective Subjective: pt is seen and examined, follow up consult is dictated #[id number] r/o psycogenic polydepsia and hyponatremia Objective - Vital Signs/Intake and Output Vital Signs (last 24 hours): Temp Pulse Resp BP Pulse Ox 98.0 F 86 33 H 125/54 L 100 12/23/18 08:00 12/23/18 08:22 12/23/18 08:00 12/23/18 08:22 12/23/18 08:00 Intake and Output: 12/23/18 12/23/18 06:59 18:59 Intake Total 560 240 Balance 560 240 - Medications Medications: Current Medications Aspirin (Ecotrin) 81 mg PO DAILY [facility] Last Admin: 12/23/18 08:17 Dose: 81 mg Atorvastatin Calcium (Lipitor) 20 mg PO DAILY [facility] Last Admin: 12/23/18 08:19 Dose: 20 mg Benzonatate (Tessalon Perles) 100 mg PO Q12 PRN PRN Reason: Cough Last Admin: 12/22/18 21:05 Dose: 100 mg Calcium/Vitamin D (Oyster Shell Calcium/Vitamin D 500 Mg-200 Iu) 1 tab PO BID [facility] Last Admin: 12/23/18 08:20 Dose: 1 tab Ergocalciferol (Drisdol 50,000 Intl Units Cap) 1 cap PO QWK [facility] Last Admin: 12/22/18 17:58 Dose: 1 cap Ferrous Sulfate (Feosol) 325 mg PO BID [facility] Last Admin: 12/23/18 08:18 Dose: 325 mg Gabapentin (Neurontin) 300 mg PO QAM [facility] Last Admin: 12/23/18 08:20 Dose: 300 mg Gabapentin (Neurontin) 600 mg PO HS [facility] Last Admin: 12/22/18 21:05 Dose: 600 mg Guaifenesin/Dextromethorphan (Robitussin Dm) 10 ml PO Q8 PRN PRN Reason: Cough Last Admin: 12/23/18 08:25 Dose: 10 ml Home Med (Azilsartan Medoxomil [Edarbi]) 40 mg PO DAILY [facility] Last Admin: 12/23/18 08:18 Dose: 40 mg Ibuprofen (Motrin Tab) 800 mg PO Q8 PRN PRN Reason: Pain, moderate (4-7) Meclizine HCl (Antivert) 25 mg PO Q12 PRN PRN Reason: Dizziness Metoprolol Succinate (Toprol Xl) 25 mg PO DAILY [facility] Last Admin: 12/23/18 08:22 Dose: 25 mg Multivitamins/Minerals (Therapeutic-M Tab) 1 tab PO DAILY [facility] Last Admin: 12/23/18 08:22 Dose: 1 tab Olanzapine (Zyprexa) 20 mg PO HS [facility] Last Admin: 12/22/18 23:13 Dose: 20 mg Pantoprazole Sodium (Protonix Ec Tab) 20 mg PO DAILY [facility] Last Admin: 12/23/18 08:22 Dose: 20 mg Fluticasone/Salmeterol (Advair Diskus 250/50) 1 puff IH Q12 [facility] Last Admin: 12/23/18 10:17 Dose: 1 puff Simethicone (Mylicon Chew Tab) 80 mg PO DAILY PRN PRN Reason: Flatulence Sitagliptin Phosphate (Januvia) 100 mg PO DAILY [facility] Last Admin: 12/23/18 08:16 Dose: 100 mg Zolpidem Tartrate (Ambien) 5 mg PO HS [facility] Last Admin: 12/22/18 23:14 Dose: 5 mg - Labs Labs: 12/23/18 05:25 12/23/18 05:25
--- NOTE | 2018-12-23 22:13 | CP.PCM.HP ---
History of Present Illness - History of Present Illness History of Present Illness: 68 y/o female with hx of hypercholesterolemia, diabetes, anxiety/depression, and HTN was admitted for hyponatremia associated with symptoms of severe dizziness and nausea. Patient was seen and examined at bedside States improvement since arrival Denied fever, chills, chest pain, shortness of breath, headache, weakness, numbness or tingling. Present on Admission - Present on Admission Any Indicators Present on Admission: No Review of Systems - Review of Systems All systems: reviewed and no additional remarkable complaints except (mentioned above) Past Patient History - Past Medical History & Family History Past Medical History?: Yes Past Family History: Reviewed and not pertinent - Past Social History Smoking Status: Light Smoker < 10 Cigarettes Daily - CARDIAC Hx Cardiac Disorders: Yes Hx Hypercholesterolemia: Yes Hx Hypertension: Yes - PULMONARY Hx Respiratory Disorders: No - NEUROLOGICAL Hx Neurological Disorder: Yes Hx Dizziness: Yes Hx Vertigo: Yes - HEENT Hx HEENT Problems: Yes Hx Cataracts: Yes - RENAL Hx Chronic Kidney Disease: No - ENDOCRINE/METABOLIC Hx Endocrine Disorders: Yes Hx Diabetes Mellitus Type 2: Yes - HEMATOLOGICAL/ONCOLOGICAL Hx Blood Disorders: No - INTEGUMENTARY Hx Dermatological Problems: No - MUSCULOSKELETAL/RHEUMATOLOGICAL Hx Musculoskeletal Disorders: Yes Hx Arthritis: Yes Hx Falls: No - GASTROINTESTINAL Hx Gastrointestinal Disorders: No - GENITOURINARY/GYNECOLOGICAL Hx Genitourinary Disorders: No - PSYCHIATRIC Hx Psychophysiologic Disorder: Yes Hx Depression: Yes Hx Schizophrenia: Yes Hx Substance Use: No - SURGICAL HISTORY Hx Surgeries: Yes Hx Hysterectomy: Yes - ANESTHESIA Hx Anesthesia: Yes Hx Anesthesia Reactions: No Meds Allergies/Adverse Reactions: Allergies Allergy/AdvReac Type Severity Reaction Status Date / Time acetaminophen [From Percocet] Allergy RASH Verified 12/22/18 09:02 oxycodone HCl [From Percocet] Allergy RASH Verified 12/22/18 09:02 Penicillins Allergy SWELLING Verified 12/22/18 09:02 Physical Exam - Constitutional Appears: Non-toxic, No Acute Distress - Head Exam Head Exam: NORMAL INSPECTION - Eye Exam Eye Exam: Normal appearance - Neck Exam Neck exam: Positive for: Normal Inspection - Respiratory Exam Respiratory Exam: NORMAL BREATHING PATTERN - Cardiovascular Exam Cardiovascular Exam: +S1, +S2 - GI/Abdominal Exam GI & Abdominal Exam: Soft - Neurological Exam Neurological exam: Alert, Oriented x3 - Psychiatric Exam Psychiatric exam: Normal Affect, Normal Mood - Skin Skin Exam: Normal Color, Warm Results - Vital Signs Recent Vital Signs: Last Vital Signs Temp 97.3 F L 12/23/18 21:00 Pulse 72 12/23/18 21:00 Resp 17 12/23/18 21:00 BP 132/51 L 12/23/18 21:00 Pulse Ox 100 12/23/18 21:00 - Labs Result Diagrams: 12/23/18 05:25 12/24/18 04:30 Labs: Laboratory Results - last 24 hr 12/22/18 12/23/18 12/23/18 21:59 05:25 05:25 WBC 7.2 RBC 4.20 Hgb 11.2 L Hct 32.8 L MCV 77.9 L MCH 26.6 L MCHC 34.1 RDW 15.9 H Plt Count 330 Sodium 127 L Potassium 4.5 Chloride 96 L Carbon Dioxide 25 Anion Gap 11 BUN 18 H Creatinine 1.2 Est GFR ( Amer) 54 Est GFR (Non-Af Amer) 45 POC Glucose (mg/dL) Random Glucose 75 Calcium 10.0 Total Bilirubin 0.6 AST 47 H ALT 35 Alkaline Phosphatase 71 Total Protein 6.6 Albumin 3.7 Globulin 2.9 Albumin/Globulin Ratio 1.3 Cortisol AM Sample Urine Osmolality 90 L Ur Random Sodium 16 Ur Random Potassium 6.7 12/23/18 12/23/18 12/23/18 05:25 06:34 11:46 WBC RBC Hgb Hct MCV MCH MCHC RDW Plt Count Sodium Potassium Chloride Carbon Dioxide Anion Gap BUN Creatinine Est GFR ( Amer) Est GFR (Non-Af Amer) POC Glucose (mg/dL) 81 76 Random Glucose Calcium Total Bilirubin AST ALT Alkaline Phosphatase Total Protein Albumin Globulin Albumin/Globulin Ratio Cortisol AM Sample 10.9 Urine Osmolality Ur Random Sodium Ur Random Potassium 12/23/18 12/23/18 17:00 21:21 WBC RBC Hgb Hct MCV MCH MCHC RDW Plt Count Sodium Potassium Chloride Carbon Dioxide Anion Gap BUN Creatinine Est GFR ( Amer) Est GFR (Non-Af Amer) POC Glucose (mg/dL) 90 102 Random Glucose Calcium Total Bilirubin AST ALT Alkaline Phosphatase Total Protein Albumin Globulin Albumin/Globulin Ratio Cortisol AM Sample Urine Osmolality Ur Random Sodium Ur Random Potassium Assessment & Plan (1) Hyponatremia Status: Acute - Assessment and Plan (Free Text) Assessment: c/w IVF Na improving symptoms improving cont meds monitor labs monitor vitals nephrology consulted rest of plan as ordered
[2018-12-24 06:52] LABS: CALCIUM 10.4 mg/dL (8.4-10.2)
[2018-12-24] MEDS: Fluticasone-Salmeterol 250-50mcg Diskus IH SCH (10:00)
[2018-12-24] MEDS: Patient's Own Med (Azilsartan Medoxomil [Edarbi] 40 mg) PO SCH (10:01)
[2018-12-24] MEDS: Calcium-Vit D 500 mg-200 Units Tab UD PO SCH (10:04)
[2018-12-24] MEDS: Pantoprazole 20 mg EC Tab PO SCH (10:04)
[2018-12-24] MEDS: Metoprolol Succinate 25 mg XL Tab PO SCH (10:05)
[2018-12-24] MEDS: Multivitamin With Minerals Tab PO SCH (10:05)
[2018-12-24 13:54] VITALS: O2SAT 96
--- NOTE | 2018-12-24 14:11 | CP.PCM.DIS ---
Provider - Provider Date of Admission: 12/22/18 10:13 Attending physician: Milad Hussein MD Consults: 12/22/18 16:31 Nephrology Consult Routine Comment: Consulting Provider: Juan Manuel Walter Consulting Physician: Juan Manuel Walter Reason for Consult: hyponatremia Time Spent in preparation of Discharge (in minutes): 30 Hospital Course - Lab Results Lab Results: Micro Results 12/22/18 17:07 Naris MRSA Culture (Admit) - Final MRSA NOT DETECTED Most Recent Lab Values WBC 7.2 K/uL (4.8-10.8) 12/23/18 05:25 RBC 4.20 Mil/uL (3.80-5.20) 12/23/18 05:25 Hgb 11.2 g/dL (12.0-16.0) L 12/23/18 05:25 Hct 32.8 % (34.0-47.0) L 12/23/18 05:25 MCV 77.9 fl (81.0-99.0) L 12/23/18 05:25 MCH 26.6 pg (27.0-31.0) L 12/23/18 05:25 MCHC 34.1 g/dL (33.0-37.0) 12/23/18 05:25 RDW 15.9 % (11.5-14.5) H 12/23/18 05:25 Plt Count 330 K/uL (130-400) 12/23/18 05:25 MPV 6.4 fl (7.2-11.7) L 12/22/18 09:23 Neut % (Auto) 75.0 % (50.0-75.0) 12/22/18 09:23 Lymph % (Auto) 15.8 % (20.0-40.0) L 12/22/18 09:23 [place] % (Auto) 7.5 % (0.0-10.0) 12/22/18 09:23 Eos % (Auto) 1.2 % (0.0-4.0) 12/22/18 09:23 Baso % (Auto) 0.5 % (0.0-2.0) 12/22/18 09:23 Neut # (Auto) 7.4 K/uL (1.8-7.0) H 12/22/18 09:23 Lymph # (Auto) 1.5 K/uL (1.0-4.3) 12/22/18 09:23 [place] # (Auto) 0.7 K/uL (0.0-0.8) 12/22/18 09:23 Eos # (Auto) 0.1 K/uL (0.0-0.7) 12/22/18 09:23 Baso # (Auto) 0.1 K/uL (0.0-0.2) 12/22/18 09:23 Sodium 135 mmol/l (132-148) 12/24/18 04:30 Potassium 4.2 MMOL/L (3.6-5.0) 12/24/18 04:30 Chloride 101 mmol/L (98-107) 12/24/18 04:30 Carbon Dioxide 24 mmol/L (22-30) 12/24/18 04:30 Anion Gap 14 (10-20) 12/24/18 04:30 BUN 24 mg/dl (7-17) H 12/24/18 04:30 Creatinine 1.3 mg/dl (0.7-1.2) H 12/24/18 04:30 Est GFR ( Amer) 49 12/24/18 04:30 Est GFR (Non-Af Amer) 41 12/24/18 04:30 POC Glucose (mg/dL) 102 mg/dL (65-110) 12/24/18 04:59 Random Glucose 96 mg/dL (65-105) 12/24/18 04:30 Uric Acid 3.6 mg/Dl (2.2-7.5) 12/22/18 19:00 Calcium 10.4 mg/dL (8.4-10.2) H 12/24/18 04:30 Total Bilirubin 0.6 mg/dl (0.2-1.3) 12/23/18 05:25 AST 47 U/L (14-36) H 12/23/18 05:25 ALT 35 U/L (9-52) 12/23/18 05:25 Alkaline Phosphatase 71 U/L (38-126) 12/23/18 05:25 Total Protein 6.6 G/DL (6.3-8.2) 12/23/18 05:25 Albumin 3.7 g/dL (3.5-5.0) 12/23/18 05:25 Globulin 2.9 gm/dL (2.2-3.9) 12/23/18 05:25 Albumin/Globulin Ratio 1.3 (1.0-2.1) 12/23/18 05:25 TSH 3rd Generation 0.74 mIU/ML (0.46-4.68) 12/22/18 19:00 Cortisol AM Sample 10.9 ug/dL (4.46-22.7) 12/23/18 05:25 Urine Color Colorless (YELLOW) 12/22/18 10:13 Urine Clarity Clear (Clear) 12/22/18 10:13 Urine pH 8.0 (5.0-8.0) 12/22/18 10:13 Ur Specific [place] < 1.005 (1.003-1.030) 12/22/18 10:13 Urine Protein Negative mg/dL (NEGATIVE) 12/22/18 10:13 Urine Glucose (UA) Neg mg/dL (NEGATIVE) 12/22/18 10:13 Urine Ketones Negative mg/dL (NEGATIVE) 12/22/18 10:13 Urine Blood Small (NEGATIVE) 12/22/18 10:13 Urine Nitrate Negative (NEGATIVE) 12/22/18 10:13 Urine Bilirubin Negative (NEGATIVE) 12/22/18 10:13 Urine Urobilinogen 0.2-1.0 mg/dL (0.2-1.0) 12/22/18 10:13 Ur Leukocyte Esterase Neg [place]/uL (Negative) 12/22/18 10:13 Urine RBC (Auto) 1 /hpf (0-3) 12/22/18 10:13 Urine Microscopic WBC < 1 /hpf (0-5) 12/22/18 10:13 Ur Squamous Epith Cells < 1 /hpf (0-5) 12/22/18 10:13 Urine Bacteria Rare (<OCC) 12/22/18 10:13 Urine Osmolality 90 mosm/kg (300-1000) L 12/22/18 21:59 Ur Random Sodium 16 meq/L 12/22/18 21:59 Ur Random Potassium 6.7 mmol/L 12/22/18 21:59 Influenza Typ A,B (EIA) Negative for flu a/b (NEGATIVE) 01/24/19 09:10 - Hospital Course Hospital Course: This is a 68 y/o female with hx of anxiety and depression and HTN was admitted for severe dizziness and vertigo. She couldnt keep her balance. She sought ER eval and admitted for severe dizziness. Noted elevated BP. Discharge Exam - Head Exam Head Exam: ATRAUMATIC, NORMAL INSPECTION, NORMOCEPHALIC - Eye Exam Eye Exam: Normal appearance - Respiratory Exam Respiratory Exam: NORMAL BREATHING PATTERN - Cardiovascular Exam Cardiovascular Exam: REGULAR RHYTHM - GI/Abdominal Exam GI & Abdominal Exam: Normal Bowel Sounds - Neurological Exam Neurological exam: CN II-XII Intact Discharge Plan - Follow Up Plan Condition: FAIR Disposition: HOME/ ROUTINE Additional Instructions: will discharge to home advised to continue same home meds and follow up next week.
--- NOTE | 2018-12-24 15:29 | CP.PCM.PN ---
Subjective - Date & Time of Evaluation Date of Evaluation: 12/24/18 Time of Evaluation: 15:28 - Subjective Subjective: pt is seen and examined, follow up consult is dictated #[id number] check urinalysis, osm Objective - Vital Signs/Intake and Output Vital Signs (last 24 hours): Temp Pulse Resp BP Pulse Ox 97.9 F 86 20 155/83 H 96 12/24/18 13:53 12/24/18 13:53 12/24/18 13:53 12/24/18 13:53 12/24/18 13:53 Intake and Output: 12/24/18 12/24/18 06:59 18:59 Intake Total 50 Balance 50 - Medications Medications: Current Medications Aspirin (Ecotrin) 81 mg PO DAILY [facility] Last Admin: 12/24/18 10:02 Dose: 81 mg Atorvastatin Calcium (Lipitor) 20 mg PO DAILY [facility] Last Admin: 12/24/18 10:03 Dose: 20 mg Benzonatate (Tessalon Perles) 100 mg PO Q12 PRN PRN Reason: Cough Last Admin: 12/23/18 20:21 Dose: 100 mg Calcium/Vitamin D (Oyster Shell Calcium/Vitamin D 500 Mg-200 Iu) 1 tab PO BID [facility] Last Admin: 12/24/18 10:04 Dose: 1 tab Ergocalciferol (Drisdol 50,000 Intl Units Cap) 1 cap PO QWK [facility] Last Admin: 12/22/18 17:58 Dose: 1 cap Ferrous Sulfate (Feosol) 325 mg PO BID [facility] Last Admin: 12/24/18 10:02 Dose: 325 mg Gabapentin (Neurontin) 300 mg PO QAM [facility] Last Admin: 12/24/18 10:03 Dose: 300 mg Gabapentin (Neurontin) 600 mg PO HS [facility] Last Admin: 12/23/18 22:00 Dose: 600 mg Guaifenesin/Dextromethorphan (Robitussin Dm) 10 ml PO Q8 PRN PRN Reason: Cough Last Admin: 12/23/18 20:20 Dose: 10 ml Home Med (Azilsartan Medoxomil [Edarbi]) 40 mg PO DAILY [facility] Last Admin: 12/24/18 10:01 Dose: 40 mg Ibuprofen (Motrin Tab) 800 mg PO Q8 PRN PRN Reason: Pain, moderate (4-7) Last Admin: 12/23/18 16:42 Dose: 800 mg Meclizine HCl (Antivert) 25 mg PO Q12 PRN PRN Reason: Dizziness Metoprolol Succinate (Toprol Xl) 25 mg PO DAILY [facility] Last Admin: 12/24/18 10:05 Dose: 25 mg Multivitamins/Minerals (Therapeutic-M Tab) 1 tab PO DAILY [facility] Last Admin: 12/24/18 10:05 Dose: 1 tab Olanzapine (Zyprexa) 20 mg PO HS [facility] Last Admin: 12/23/18 23:19 Dose: 20 mg Pantoprazole Sodium (Protonix Ec Tab) 20 mg PO DAILY [facility] Last Admin: 12/24/18 10:04 Dose: 20 mg Fluticasone/Salmeterol (Advair Diskus 250/50) 1 puff IH Q12 [facility] Last Admin: 12/24/18 10:00 Dose: 1 puff Simethicone (Mylicon Chew Tab) 80 mg PO DAILY PRN PRN Reason: Flatulence Sitagliptin Phosphate (Januvia) 100 mg PO DAILY [facility] Last Admin: 12/24/18 10:02 Dose: 100 mg Zolpidem Tartrate (Ambien) 5 mg PO HS [facility] Last Admin: 12/23/18 23:16 Dose: Not Given - Labs Labs: 12/23/18 05:25 12/24/18 04:30
[2018-12-24 15:31] VITALS: BP 159/87; PULSE 76; RESP 18; TEMP 98
--- NOTE | 2018-12-25 02:00 | PN ---
DATE: 12/24/2018 FOLLOWUP RENAL CONSULTATION LOCATION: The patient is located in room 403, bed 2. REQUESTED BY: Milad Hussein MD REASON FOR FOLLOWUP: Hyponatremia, for further evaluation. SUBJECTIVE: Mrs. Carmona is a 68-year-old elderly female with a past medical history significant for hypertension, diabetes, hyperlipidemia, depression, arthritis, who was admitted with chief complaints of dizziness and nausea on the day of admission. Denies any chest pain, palpitation. Denies any fever, cough. No abdominal pain. No swelling of the legs. The patient claims she was drinking plenty of fluids. Her blood pressure on admission was 186/91. The patient was found to have hyponatremia on admission, . The patient was started on IV fluids in the emergency room and subsequently admitted to telemetry. 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 The patient denies any complaints. No chest pain, no palpitation. No fever, no cough. No abdominal pain. No nausea, vomiting, diarrhea. PHYSICAL EXAMINATION: As follows: VITAL SIGNS: Blood pressure this afternoon 159/87, pulse 76, respiration 18, temperature 98, saturation 96%. Height 4 feet 9 inches, weight is 135 pounds. GENERAL: Mrs. Carmona is a 68-year-old elderly female with a history of hypertension, diabetes, depression, hyperlipidemia, moderately built, moderate nourished, not in acute distress. HEENT: Pupils normal, reactive to light and accommodation. Conjunctivae pink. Sclerae anicteric. Tongue is moist. Trachea is midline. LUNGS: Symmetric on both sides. Bilateral breath sounds present. Clear to auscultation. CARDIOVASCULAR SYSTEM: [place] at the fifth intercostal space, midclavicular line. S1, S2 audible. No murmur, gallop. ABDOMEN: Normal in appearance, soft, tympanitic. No guarding. No rigidity. No splenomegaly. CENTRAL NERVOUS SYSTEM: The patient is alert, awake, oriented x3. Nonfocal neuro examination. Cranial nerves II through XII grossly intact. Sensory, motor system is within normal limits. EXTREMITIES: No cyanosis, no clubbing, no edema. CURRENT MEDICATIONS: Include aspirin 81 mg daily, Lipitor 20 mg p.o. daily, Tessalon Perles, [place] with vitamin D, ergocalciferol 50,000 units every week, Feosol 325 mg p.o. b.i.d., gabapentin 300 mg p.o. daily 300 mg in the morning and 600 mg in the evening, Robitussin DM, also ibuprofen, meclizine, metoprolol, multivitamins, Zyprexa, pantoprazole, Advair, simethicone, Januvia, and Ambien. LABORATORY DATA: Include as follows: As of 12/24/2018, sodium 135, potassium 4.2, chloride 101, CO2 24, BUN 24, creatinine 1.3, glucose 96, calcium 10.4. ASSESSMENT AND PLAN: In summary, Mrs. Carmona is a 68-year-old elderly female with a history of hypertension, diabetes, hyperlipidemia, depression, arthritis, was admitted with nausea and dizziness and found to have a serum sodium of 114 status post intravenous fluids, normal saline in the emergency room and subsequently intravenous fluids was discontinued and now the serum sodium improved to 135 this morning. 1. 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 In view of low serum sodium and also euvolemic with hypertension and low urine osmolality, urine osmolality has been 100 which is inconsistent with secondary psychogenic polydipsia. The patient is on fluid restriction of 1.5 liters per day and now serum sodium increased to 135. 2. Hypertension. 3. Arthritis. 4. Depression. 5. Mild hypercalcemia, most likely secondary to vitamin D and also vitamin D with Os-Charles. Discontinue calcium and vitamin D at this time. Continue follow up BMP as an outpatient. Please consider repeat urinalysis and urine osmolality prior to discharge. Discussed with the patient's nurse regarding the urine test. Thank you for allowing me to participate in your patient's care. Juan Manuel Walter MD
--- NOTE | 2018-12-26 08:41 | CON ---
DATE: 12/23/2018 FOLLOWUP RENAL CONSULTATION LOCATION: The patient is located in room 423, bed 1. REQUESTED BY: Darryl Hussein MD REASON FOR RENAL CONSULTATION: Hyponatremia, for further evaluation. HISTORY OF PRESENT ILLNESS: Mrs. Carmona is about 68-year-old elderly female with a past medical history significant for diabetes, hyperlipidemia, hypertension, depression who was admitted with the chief complaints of dizziness and nausea since the day of admission yesterday. Denies any chest pain or palpitations. Denies any fever or cough. Denies any vomiting. Denies any headache. Denies any numbness or tingling. Denies dysuria or frequency. Denies any shortness of breath. Denies any swelling of the legs. The patient was found to have hypertensive, blood pressure 186/91 in the emergency room and also found to have hyponatremia and admitted to the Telemetry. Renal consult was requested yesterday for evaluation of the hyponatremia. The patient is pretty much better. The patient is out of bed to chair. Denies any complaints today. The patient claims she drinks lot of fluids in the house. PHYSICAL EXAMINATION: VITAL SIGNS: This morning, blood pressure 125/54, pulse 78, respirations about 16, temperature 98, saturation 100%. Height 4 feet 9 inches. Weight is 135 pounds. GENERAL: Mrs. Carmona is a 68-year-old elderly female, moderately built, moderately nourished, not in acute distress. HEENT: Pupils are normal and reactive to light and accommodation. Conjunctivae pink. Sclerae anicteric. Tongue is moist. Trachea is midline. LUNGS: Symmetric on both sides. Bilateral breath sounds present. Clear to auscultation. CARDIOVASCULAR SYSTEM: [place] at the fifth intercostal space, midclavicular line. S1 and S2 audible. No murmur or gallop. ABDOMEN: Normal in appearance, soft, tympanitic. No guarding. No rigidity. No hepatosplenomegaly. CENTRAL NERVOUS SYSTEM: The patient is alert, awake, oriented x3. Nonfocal neuro examination. Cranial nerves II through XII grossly intact. Sensory and motor system is within normal limits. EXTREMITIES: No cyanosis, no clubbing, no edema. CURRENT LABORATORY DATA: Include as follows: As of 12/23/2018: WBC 7.2, hemoglobin 11.2, hematocrit is 32.8, MCV of 77.9, and platelets 330. Sodium 127, potassium of 4.5, chloride 96, CO2 of 25, BUN 18, creatinine 1.2, glucose 81, calcium is 10. Total bili 0.6, AST 47, ALT 25, alkaline phosphatase 71, total protein 6.6, albumin is 3.7. Serum cortisol level is 10.9, TSH is 0.74 which is within normal range, and serum uric acid is 3.6. As of 12/22/2018: Urine osmolality is 90, urine sodium is 16, urine potassium 6.7, urine specific gravity less than 1.005, and pH of 8. Serum sodium on admission yesterday was 114 and repeat one in the afternoon is 120 and sodium this morning is 127. CURRENT MEDICATIONS: Include as follows: Advair, Ambien, meclizine, ergocalciferol 50,000 units one capsule every weekly, aspirin, Feosol, Januvia, atorvastatin, ibuprofen 800 mg p.o. every 8 hours p.r.n., Mylicon chewable tablet, gabapentin 600 mg at bedtime and 300 mg in the morning, Os-Charles with vitamin D, Protonix 40 mg, Robitussin DM, Tessalon Perles, multivitamin, metoprolol 25 mg p.o. daily, and Zyprexa 20 mg p.o. at bedtime. ASSESSMENT AND PLAN: In summary, Mrs. Carmona is 68-year-old elderly female with a history of hypertension, diabetes type 2, hyperlipidemia, depression, arthritis who was admitted with feeling nausea and dizzy and found to have a serum sodium of 114. The patient was given normal saline 1 L bolus in the emergency room yesterday and afterwards, the patient was given normal saline at 70 mL per hour and discontinued after the urine electrolytes are available. Apparently, the patient was getting intravenous fluids until this morning which was not discontinued by the registered nurse last night. The patient is sitting in the chair and without any discomfort. 1. 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 Plan, discontinue intravenous fluids and restrict the fluids to 1.5 L per day and repeat basic metabolic panel in the morning. 2. Hypertension. Continue metoprolol. 3. Diabetes. Continue Januvia. We will follow up with you. Thank you for allowing me to participate in your patient's care. Juan Manuel Walter MD
== END 2018-12-24 16:45 | disposition home or self-care (01) | DRG 641 ==
LOC: H.ER 08:55 → H.ERHOLD 10:13 → H.ICU/CCU 14:41 → H.TEL 12-23 22:02
PROVIDERS: ADMIT Family Medicine; ATTEND Family Medicine
DX: E87.1 Hypo-osmolality and hyponatremia (principal); N25.1 Nephrogenic diabetes insipidus; I10 Essential (primary) hypertension; M19.90 Unspecified osteoarthritis, unspecified site; R63.1 Polydipsia; F17.210 Nicotine dependence, cigarettes, uncomplicated; Z90.710 Acquired absence of both cervix and uterus; F41.9 Anxiety disorder, unspecified; H26.9 Unspecified cataract; E11.9 Type 2 diabetes mellitus without complications; E78.00 Pure hypercholesterolemia, unspecified; E78.5 Hyperlipidemia, unspecified; E83.52 Hypercalcemia; F20.9 Schizophrenia, unspecified; F32.9 Major depressive disorder, single episode, unspecified; Z88.6 Allergy status to analgesic agent; Z88.0 Allergy status to penicillin

== ENCOUNTER 2019-01-01 15:55 | Emergency (ER) | payer MEDICARE, MEDICAID ==
[2019-01-01 15:55] VITALS: BMI 29.2
[2019-01-01 16:11] VITALS: RESP 18; TEMP 98.5
[2019-01-01] MEDS ORDERED: Lidocaine 5% Patch TD STA (16:56)
[2019-01-01 17:28] LABS: BASO % 0.4 % (0.0-2.0); EOS # 0.3 K/uL (0.0-0.7); EOS % 3.1 % (0.0-4.0); HEMOGLOBIN 10.4 g/dL (12.0-16.0); LYMPH # 2.5 K/uL (1.0-4.3); LYMPH % 30.9 % (20.0-40.0); MEAN CELL VOLUME 77.9 fl (81.0-99.0); MEAN CORPUSCULAR HEMOGLOBIN 26.2 pg (27.0-31.0); MEAN CORPUSCULAR HGB CONC 33.6 g/dL (33.0-37.0); MEAN PLATELET VOLUME 6.8 fl (7.2-11.7); MONO # 0.8 K/uL (0.0-0.8); MONO % 9.6 % (0.0-10.0); NEUT # 4.5 K/uL (1.8-7.0); NRBC % 0.1 % (0.0-0.0); RBC 3.96 Mil/uL (3.80-5.20); RED CELL DISTRIBUTION WIDTH 15.4 % (11.5-14.5)
[2019-01-01 17:43] LABS: ALB/GLOB RATIO 1.3 (1.0-2.1); ALBUMIN 3.9 g/dL (3.5-5.0); ALT/SGPT 41 U/L (9-52); AST/SGOT 47 U/L (14-36); BLOOD UREA NITROGEN 22 mg/dl (7-17); CALCIUM 9.6 mg/dL (8.4-10.2); GFR NON-AFRICAN AMERICAN 45
--- NOTE | 2019-01-01 17:43 | RAD ---
Date of service: 01/01/2019 PROCEDURE: Radiographs of the Chest and Left Ribs. HISTORY: LEFT rib pain s/p fall COMPARISON: Chest x-ray performed 12/22/18 TECHNIQUE: Frontal radiograph of the chest and multiple oblique radiographs of the left ribs were obtained. FINDINGS: LEFT RIBS: No acute displaced fracture identified LUNGS: No focal consolidation. Mild biapical pleural thickening. Mild emphysematous changes. 5 mm left upper lobe calcified granuloma. Please note that chest x-ray has limited sensitivity for the detection of pulmonary masses. PLEURA: No significant pleural effusion. No definite pneumothorax. CARDIOVASCULAR: Heart size appears within normal limits. Atherosclerotic calcification of the aorta present OTHER FINDINGS: None. IMPRESSION: No appreciable displaced left rib fracture. Mild biapical pleural thickening. Mild emphysematous changes. 5 mm left upper lobe calcified granuloma.
--- NOTE | 2019-01-01 17:53 | ED PDOC ---
HPI: Chest Pain Time Seen by Provider: 01/01/19 16:48 Chief Complaint (Nursing): Rib Injury Chief Complaint (Provider): Rib Injury History Per: Patient History/Exam Limitations: no limitations Onset/Duration Of Symptoms: Days Current Symptoms Are (Timing): Still Present Additional Complaint(s): 68 year old female with a past medical history of HTN, diabetes, hyperchol esterolemia, and vertigo, who presents to the emergency department complaining of left side chest pain. She states she was in her kitchen when she suddenly felt dizziness and fell down. Patient states she hit her left lateral chest wall against the kitchen table. She denies having any loss of consciousness or head injury and states that the pain started after the fall just prior to arrival. Patient denies having any shortness of breath or any other injury. She has a history of vertigo which she suffers from chronically and sometimes causes her to be unbalanced and fall. She reports that her vertigo has resolved. PMD: Presley Nolan Past Medical History Reviewed: Historical Data, Nursing Documentation, Vital Signs Vital Signs: Last Vital Signs Temp 98.5 F 01/01/19 16:06 Pulse 99 H 01/01/19 16:06 Resp 18 01/01/19 16:06 BP 132/74 01/01/19 16:06 Pulse Ox 99 01/01/19 16:06 - Medical History PMH: Arthritis, Depression, Diabetes, Emphysema, HTN, Hypercholesterolemia, Schizophrenia Denies: Chronic Kidney Disease Other PMH: vertigo - Surgical History Surgical History: No Surg Hx - Family History Family History: States: Unknown Family Hx - Immunization History Hx Influenza Vaccination: Yes Hx Pneumococcal Vaccination: Yes - Home Medications Home Medications: Ambulatory Orders Medication Instructions Recorded RX: Amitriptyline HCl 50 mg PO HS 12/11/17 RX: Aspirin [Adult Low Dose 1 tab PO DAILY 12/11/17 Aspirin EC] RX: Azilsartan Medoxomil [Edarbi] 40 mg PO DAILY 12/11/17 RX: Benzonatate [Tessalon Perles] 100 mg PO Q12 PRN 12/11/17 RX: Calcium Carbonate/Vitamin D3 1 tab PO BID 12/11/17 [Oyster Shell Calcium-Vit D Tab] RX: Ferrous Sulfate [Feosol] 325 mg PO BID 12/11/17 RX: Lorazepam [Ativan] 2 mg PO Q12 12/11/17 RX: Meclizine [Meclizine*] 25 mg PO Q12 PRN 12/11/17 RX: Mv,Min10/Folic Acid/D3/Ala/Lut 1 tab PO DAILY 12/11/17 [Strovite One [place]let] RX: Olanzapine [Zyprexa] 20 mg PO HS 12/11/17 RX: Rosuvastatin Calcium [Crestor] 10 mg PO DAILY 12/11/17 RX: Simethicone [Gas-X] 125 mg PO DAILY PRN 12/11/17 RX: Tiotropium Br/Olodaterol HCl 1 inh PO DAILY 12/11/17 [Stiolto Respimat Inhal [place]] RX: Zolpidem [Ambien] 10 mg PO HS 12/11/17 RX: Albuterol/Ipratropium [Duoneb 3 ml IH Q8 12/22/18 3 mg/0.5 mg (3 ml) UD] RX: Azithromycin [Zithromax 500 mg PO DAILY 12/22/18 [place]] RX: Brompheniramine/Pseudoephed/Dm 10 ml PO Q8 PRN 12/22/18 [Gzovtgpjaw-Owfykdzbyih-Bc Syr] RX: Budesonide/Formoterol Fumarate 1 puff IH Q12 12/22/18 [Symbicort 160-4.5 Mcg Inhaler] RX: Ergocalciferol (Vitamin D2) 50,000 unit PO QWK 12/22/18 [Vitamin D2] RX: Gabapentin [Neurontin] 300 mg PO QAM 12/22/18 RX: Gabapentin [Neurontin] 600 mg PO HS 12/22/18 RX: Metoprolol Succinate XL 25 mg PO DAILY 12/22/18 [Toprol XL] RX: Pantoprazole Sodium [Protonix] 20 mg PO DAILY 12/22/18 RX: SITagliptin [Januvia] 100 mg PO DAILY 12/22/18 RX: Sodium Chloride [Sodium 1 gm PO Q12 12/22/18 Chloride Tab] RX: Vortioxetine Hydrobromide 10 mg PO DAILY 12/22/18 [Trintellix] Lidocaine 5% [Lidoderm] 1 ea TD DAILY PRN #20 patch 01/01/19 - Allergies Allergies/Adverse Reactions: Allergies Allergy/AdvReac Type Severity Reaction Status Date / Time acetaminophen [From Percocet] Allergy RASH Verified 12/22/18 09:02 oxycodone HCl [From Percocet] Allergy RASH Verified 12/22/18 09:02 Penicillins Allergy SWELLING Verified 12/22/18 09:02 Review of Systems ROS Statement: Except As Marked, All Systems Reviewed And Found Negative Cardiovascular: Positive for: Chest Pain (left sided) Respiratory: Negative for: Shortness of Breath Neurological: Positive for: Dizziness. Negative for: Other (LOC) Physical Exam - Reviewed Nursing Documentation Reviewed: Yes Vital Signs Reviewed: Yes - Physical Exam Appears: Positive for: No Acute Distress Head Exam: Positive for: ATRAUMATIC, NORMOCEPHALIC Eye Exam: Positive for: Normal appearance, EOMI, PERRL. Negative for: Nystagmus ENT: Positive for: Other (dry mucous membranes) Cardiovascular/Chest: Negative for: Chest Non Tender (TTP left lateral chest wall, questionable crepitus ) Respiratory: Positive for: Normal Breath Sounds. Negative for: Respiratory Distress Neurologic/Psych: Positive for: Alert, Oriented (x3), Cerebellar Tests (normal: finger to nose), Other (slight dysarthria). Negative for: Motor/Sensory Deficits - Laboratory Results Result Diagrams: 01/01/19 16:00 01/01/19 16:00 Lab Results: Total Bilirubin 0.3 mg/dl (0.2-1.3) 01/01/19 16:00 AST 47 U/L (14-36) H 01/01/19 16:00 ALT 41 U/L (9-52) 01/01/19 16:00 Alkaline Phosphatase 73 U/L (38-126) 01/01/19 16:00 Total Protein 6.9 G/DL (6.3-8.2) 01/01/19 16:00 Albumin 3.9 g/dL (3.5-5.0) 01/01/19 16:00 Globulin 3.1 gm/dL (2.2-3.9) 01/01/19 16:00 Albumin/Globulin Ratio 1.3 (1.0-2.1) 01/01/19 16:00 - ECG O2 Sat by Pulse Oximetry: 99 (RA) Pulse Ox Interpretation: Normal Medical Decision Making Medical Decision Making: Time: 165 Impression: Chest wall trauma Differential diagnosis includes but is not limited to: fracture, pneumothorax, electrolyte abnormalities, dehydration, or vertigo Plan: --Ribs left & PA chest xray --Type and screen --Alcohol serum --Cmp --Magnesium --Phosphorous --CBC with differential --Urinalysis --Saline lock --Lidociane 5% 1 ea TD Time: 1739 Accession No. : [id number] Patient Name / ID : MAURICIO BERMAN M / [id number] Exam Date : 01/01/2019 16:48:17 ( Approved ) Study Comment : Sex / Age : F / 68Y Creator : Brenda Mackenzie MD Dictator : Brenda Mackenzie MD Simplex Operator : Router Tender : Brenda Mackenzie MD Approver2 : Report Date : 01/01/2019 17:39:51 My Comment : Date of service: 01/01/2019 PROCEDURE: Radiographs of the Chest and Left Ribs. HISTORY: LEFT rib pain s/p fall COMPARISON: Chest x-ray performed 12/22/18 TECHNIQUE: Frontal radiograph of the chest and multiple oblique radiographs of the left ribs were obtained. FINDINGS: LEFT RIBS: No acute displaced fracture identified LUNGS: No focal consolidation. Mild biapical pleural thickening. Mild emphysematous changes. 5 mm left upper lobe calcified granuloma. Please note that chest x-ray has limited sensitivity for the detection of pulmonary masses. PLEURA: No significant pleural effusion. No definite pneumothorax. CARDIOVASCULAR: Heart size appears within normal limits. Atherosclerotic calcification of the aorta present OTHER FINDINGS: None. IMPRESSION: No appreciable displaced left rib fracture. Mild biapical pleural thickening. Mild emphysematous changes. 5 mm left upper lobe calcified granuloma. 1900 On reeval pt is ambulating without difficulty, in no distress, requesting food. Stable for discharge. Scribe Attestation: Documented by Dylan Bryant, acting as a scribe for Swati Celis MD. Provider Scribe Attestation: All medical record entries made by the Scribe were at my direction and personally dictated by me. I have reviewed the chart and agree that the record accurately reflects my personal performance of the history, physical exam, medical decision making, and the department course for this patient. I have also personally directed, reviewed, and agree with the discharge instructions and disposition. Disposition - Clinical Impression Clinical Impression: Vertigo, Bruised ribs - Disposition Referrals: Presley Nolan MD [Staff Provider] - ([facility]) Disposition: Routine/Home Disposition Time: 19:00 Condition: IMPROVED Prescriptions: Lidocaine 5% [Lidoderm] 1 ea TD DAILY PRN #20 patch PRN Reason: PAIN Instructions: Vertigo (a Type of Dizziness) (DC), Bruised Rib (DC) Print Language: MALTESE
[2019-01-01] MEDS ORDERED: Lidocaine 5% Patch TD ONE (18:35)
[2019-01-01 20:06] VITALS: BP 118/67; PULSE 80
[2019-01-01 21:38] LABS: SQUAMOUS EPITHIAL 2 /hpf (0-5); URINE BILIRUBIN NEGATIVE (NEGATIVE); URINE BLOOD SMALL (NEGATIVE); URINE CLARITY CLEAR (Clear); URINE COLOR STRAW (YELLOW); URINE GLUCOSE (UA) NEG (NEGATIVE); URINE LEUKOCYTE ESTERASE TRACE Leu/uL (Negative); URINE PROTEIN NEGATIVE (NEGATIVE); URINE UROBILINOGEN 0.2-1.0 mg/dL (0.2-1.0)
[2019-01-01 21:52] LABS: BARBITURATES, UR NEGATIVE (NEGATIVE); BENZODIAZEPINES, UR NEGATIVE (NEGATIVE); OPIATES, UR NEGATIVE (NEGATIVE); PHENCYCLIDINE, UR NEGATIVE (NEGATIVE)
[2019-01-03 09:38] VITALS: O2SAT 99
== END 2019-01-01 20:21 | disposition home or self-care (01) ==
LOC: H.ER 15:55
DX: R42 Dizziness and giddiness (principal); S20.212A Contusion of left front wall of thorax, initial encounter; W18.39XA Other fall on same level, initial encounter; Y92.000 Kitchen of unspecified non-institutional (private) residence as the place of occurrence of the external cause
CPT/HCPCS: 71101; 80053; 81003; 83735; 84100; 85025; 86850; 86900; 87086; 99285; G0480